=== PATIENT | male | born 1995 | race Caucasian/White ===

== ENCOUNTER → 2024-09-20 13:37 | Outpatient (CLI) | payer MEDICARE, MEDICAID, SELFPAY ==
--- NOTE | 2024-09-20 13:43 | DI.RAD.S_ITS ---
PROCEDURE: XR FOOT RT MIN 3V INDICATIONS: Right foot and ankle injury/strain/pain TECHNIQUE: 3 views of the foot were acquired. COMPARISON: [facility], CR, XR ANKLE RT MIN 3V, 09/20/2024, 13:52. FINDINGS: Bones: Curvilinear avulsion overlying the anterior talus. Soft tissues: No tibiotalar joint effusion. Achilles tendon appears normal. IMPRESSION: Curvilinear calcification overlying the anterior talus. Avulsion injury cannot be excluded. Recommend correlation point tenderness. Dictated by: Evelyn Mendoza M.D. on 09/20/2024 at 17:30 Approved by: Evelyn Mendoza M.D. on 09/20/2024 at 17:32
--- NOTE | 2024-09-20 13:43 | DI.RAD.S_ITS ---
PROCEDURE: XR ANKLE RT MIN 3V INDICATIONS: Right foot and ankle injury/strain/pain TECHNIQUE: 3 views of the ankle were acquired. COMPARISON: [facility], CR, XR FOOT RT MIN 3V, 09/20/2024, 13:52. FINDINGS: Bones: Curvilinear calcification superior to the anterior talus. Ankle mortise is normally aligned. No suspicious bony lesions. Soft tissues: Lateral malleolar edema. IMPRESSION: Curvilinear calcification superior to the anterior talus. Avulsion injury cannot be excluded. No priors. Recommend correlation point tenderness. Dictated by: Evelyn Mendoza M.D. on 09/20/2024 at 17:29 Approved by: Evelyn Mendoza M.D. on 09/20/2024 at 17:30
== END ==
PROVIDERS: PCP Physician Assistant; Referring Provider Physician Assistant Surgical; Visit Provider Physician Assistant Surgical
DX: S99.921A Unspecified injury of right foot, initial encounter (principal); S99.911A Unspecified injury of right ankle, initial encounter; R60.0 Localized edema; X58.XXXA Exposure to other specified factors, initial encounter
CPT/HCPCS: 73610; 73630